=== PATIENT | female | born 1985 | race Caucasian/White ===

== ENCOUNTER 2025-01-06 10:53 | Outpatient (REF) | payer OTHER, SELFPAY ==
--- NOTE | ~2025-01-06 | XR_ITS ---
EXAMINATION: Lumbar spine 4 views. CLINICAL INDICATION: Radiculopathy. COMPARISON: None. TECHNIQUE: 4 views with flexion-extension. FINDINGS: There is maintained lumbar lordosis. The vertebral heights, alignment is normal. Mild loss of L5-S1 disc height. On flexion and extension views there is no listhesis or subluxation. On AP view there is minimal dextroscoliosis mid lumbar spine. No acute fracture, lytic or sclerotic process seen. SI joints are symmetrical and normal. Incidental finding of a radiopaque density in the right pelvis question artifact. Correlate with clinical history.: Mild dextroscoliosis lumbar spine. Mild degenerative disc changes L5-S1 disc level. No listhesis or subluxation seen on flexion-extension views. Electronically signed by: Arnold Winters MD 01/06/2025 12:54 PM EDT
== END 2025-01-06 10:54 | disposition home or self-care (01) ==
LOC: HO.HOSX 10:53
PROVIDERS: PCP Internal Medicine; Visit Provider Physician Assistant
DX: M54.16 Radiculopathy, lumbar region (principal)
CPT/HCPCS: 72110; 99202

== ENCOUNTER 2025-01-06 10:53 | Outpatient (AMB) | payer OTHER, SELFPAY ==
--- NOTE | 2025-01-06 10:56 | HO.SPINEOV ---
Vital Signs 01/06/25 11:00 Height 5 ft 4 in Weight 245 lb BMI 42.0 Intake Visit Reasons: low back pain Intake Note: Ms. Santos is here today c/o low back pain. 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 She is a very nice 39-year-old female who has had radiating right leg pain and right-sided low back pain going on now for quite some time. She has been dealing with it for few years but it has been getting steadily worse. She describes it as radiating down the back of her right-sided low back into her posterior thigh and into her calf and heel. There was also associated numbness going into her heel as well. A few years ago she did physical therapy and had an epidural injection done at L3-4 in the [facility] . This seemed to significantly improve the symptoms but ultimately a year to later it came back. 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 She will take ibuprofen intermittently when the pain gets really bad. She is here today with an MRI showing multiple degenerative findings. PMH: Shoulder surgery bilaterally, meniscus repair, GERD and seasonal allergies. No cardiopulmonary, liver or renal disease. No bleeding disorders, blood clots or coagulopathies. No history of cancer. Social hx: She does not smoke, drink use any recreational drugs Medications: She takes what sounds like a proton pump inhibitor and an allergy pill, and Motrin Allergies: Please see the [facility] [employer] [facility] [place] list Physical exam: Awake alert oriented no acute distress, strength and reflexes are normal in the lower extremities. Imaging review: There is a lumbar MRI done at the [facility]. I also did x-rays here today in the office with standing flexion-extension views. It should be noted that she has 6 [id number] lumbar vertebrae. At L4-5, there is broad-based disc bulge and moderate facet overgrowth causing bilateral lateral recess stenosis. The radiology report suggests there also could be some worsening of a disc bulge on the right at L2-3 in the foramen, but I do not see any evidence of nerve compression. The flexion-extension x-rays did not reveal any evidence of instability, but I suspect there might be a spondylolysis at L5. Impression: 39-year-old female presents with a right lumbar radiculopathy that was treated successfully with conservative management few years ago, seems to have returned, radiates down the back of her leg into her heel. Although the symptoms fit more with S1, I think because of the 6 lumbar vertebrae, the L4-5 level is acting like L5-S1 in its symptom presentation. At the L4-5 level on the MRI I can see lateral recess stenosis bilaterally and I think this would explain her symptoms. She did have a successful L3-4 epidural injection done a few years ago. This was in the [facility], but she is unable to get an appointment with them again until July of next year. I am going to start her again on physical therapy and try to get the injection done again. We can have Dr. Branch see her, and hopefully expedite an injection. I will see her back in a few months and if she is still in pain, I will show her films with Dr. Seals and see if he thinks she is a patient who would be a good candidate for a right L4-5 decompression. Thank you for allowing us to care for your patient. The total time spent with this visit with this patient was 45 minutes reviewing history, physical exam, lumbar imaging review, and implementation of treatment plan or further diagnostic testing John Saels MD,PhD [facility] Orders: Orders XR lumbar spine 4V min Today M54.16 - Radiculopathy, lumbar region PT Evaluation and Treatment Today M54.16 - Radiculopathy, lumbar region Referrals Physiatry Referral M54.16 - Radiculopathy, lumbar region Coding Level of Care Code New Pt Level 4 (17029) Diagnoses Lumbar radiculopathy M54.16
[2025-01-06 11:00] VITALS: BMI 42.0
== END 2025-01-06 11:54 | disposition home or self-care (01) ==
LOC: HO.HNS 10:54
PROVIDERS: PCP Internal Medicine; Visit Provider Physician Assistant
DX: M54.16 Radiculopathy, lumbar region (principal)
CPT/HCPCS: 99204

== ENCOUNTER → 2025-01-06 11:26 | Outpatient (BNV) | payer OTHER, SELFPAY | PROVIDERS: PCP Internal Medicine; Visit Provider Radiology Diagnostic Radiology | DX: M54.16 Radiculopathy, lumbar region (principal) | CPT/HCPCS: 72110 ==

== ENCOUNTER 2025-02-04 13:28 | Outpatient (AMB) | payer OTHER, SELFPAY ==
[2025-02-04 13:45] VITALS: BMI 42.0
--- NOTE | 2025-02-04 13:45 | A.PHYSOV_ITS ---
Vital Signs 02/04/25 13:45 Height 5 ft 4 in Weight 245 lb BMI 42.0 Intake Visit Reasons: NPV [facility] REF- LUMBAR RADICULOPATHY Intake Note: Patient is a 40 year old female here for lower back pain. Patient states her back pain has been chronic x 4 years. Patient denies injury. Patient states she is currently in Physical Therapy and has had an MRI. Patient states that most of her pain is on the right side of her lower back and occasionally has pain in right leg with numbness in the foot. Director Day Care Center Required: No Allergies erythromycin base Allergy (Severe, Verified 01/06/25 11:02) Hives Sulfa (Sulfonamide Antibiotics) Allergy (Severe, Verified 01/06/25 11:02) Hives sulfamethoxazole (From Bactrim) Allergy (Severe, Verified 01/06/25 11:02) Hives trimethoprim (From Bactrim) Allergy (Severe, Verified 01/06/25 11:02) Hives HPI Comments Details: History of Present Illness The patient is a 40-year-old female presenting with chronic low back pain with radiculopathy. She has experienced this pain for several years and previously responded well to an L3-4 epidural injection administered three years ago in [place], which provided significant relief. Currently, the pain is rated at 6 out of 10 on a typical day, escalating to 7 with activity, and occasionally radiates to the right leg and hip. The patient reports that the pain sometimes affects her lateral hip, especially when lying on her side, and occasionally extends to the front of her thigh. She has undergone physical therapy with five sessions completed, and she manages her pain with ibuprofen. The patient also reports new onset heel pain, which is a recent development since her last evaluation. She was referred to our department by Neurosurgery who is requesting epidural injection. I reviewed the referring provider's no prior consultation. Results - Imaging: MRI lumbar spine 12/23/2024 impression: Right foraminal disc protrusion at L2-3 with mild/moderate right neural foraminal narrowing and trace contact of the exiting right L2 nerve root, new back/increased from prior. Right foraminal disc protrusion at L3-4 with mild/moderate right neural foraminal narrowing and contact of the exiting L3 nerve root, similar to prior. Milder degenerative changes as above. [facility] Surgical History H/O shoulder surgery (Unknown) H/O: knee surgery (Unknown) Social History Alcohol intake: never Patient Tobacco Use Status: Never used Tobacco Use of substances other than those prescribed or required for medical reasons: No Review of Systems Narrative Review of Systems - Musculoskeletal: Reports chronic low back pain, right leg pain, and heel pain - Neurological: Denies tension or tightness in the right leg Physical Exam Exam Exam: Physical Exam Lumbar Spine: Examination of her lumbar spine, there is no visible swelling or deformity. She is tender over the right lower lumbar facets. She is otherwise nontender. Full range of motion of her lumbar spine. She does have an increase in pain with facet loading. Special Tests: Lhermittes sign was negative Heel Toe walk is normal Left straight leg raise: Negative Right straight leg raise: Positive right Special tests Sergio test is negative Ganslen's test is negative SI Joint compression test negative Yuri test negative Piriformis stretch is negative Lower Extremities: Full range of motion bilateral lower extremities. No calf pain or edema. Neuro: Sensation: Intact to lower extremities bilaterally Strength L2 (Psoas): 5/5 on the left and 5/5 on the right. L3 (Quads): 5/5 on the left and 5/5 on the right. L4 (Ant tibialis): 5/5 on the left and 5/5 on the right. L5 (EHL) 5/5 on the left and 5/5 on the right. S1 (Gastroc): 5/5 on the left and 5/5 on the right. DTR L4: (Patellar) Left 2 Right 2 S1: (Achilles) Left 2 Right 2 Babinski Downgoing No pathologic clonus. No involuntary movement. Vital Signs: BMI result Body Mass Index 42.0 Assessment & Plan Assessment & Plan (1) Lumbar spondylosis: Code(s): M47.816 - Spondylosis without myelopathy or radiculopathy, lumbar region Category: Medical Plan Pain Management - Affect: No specific impact on mood or psychological wellbeing discussed - Analgesia: Current pain level 6/10, managed with ibuprofen - Adverse Effects: No adverse effects from ibuprofen reported - Activities of Daily Living: Pain affects activity levels, increasing pain to 7/10 - Aberrant Drug Related Behaviors: None reported Plan Patient was informed and verbally consented to the use of an ambient scribe for clinic note documentation during this visit. 1. Chronic Low Back Pain The patient will receive an L3-4 epidural injection, similar to the one administered three years ago, which provided significant relief. She received 50% reduction of her pain for over 3 years. We will obtain prior authorization for her injection contact her once we have done so. The risks of the procedure, including infection, nerve damage, and bleeding, were discussed. She will continue physical therapy her medications as prescribed. We discussed the benefits of proper nutrition and exercise to maintain a healthy body weight to improve longevity and function. We also discussed the benefits of proper lifting techniques, core strengthening and proper posture. Thank you for allowing me to participate in the care of your patient. Coding Level of Care Code Tele New Pt Level 4 (74036) Diagnoses Lumbar spondylosis M47.816
--- OUTSIDE RECORDS SUMMARY | 2025-02-04 16:19 | XMS_ITS | Clinical Summary ---
Author Organization [facility] Address [address] [place] [id number] Phone Care Team Providers Care Wireless Architect Name Role Phone Jared Lerma MD Primary Care Provider [phone] Encounters Date Type Department Care Team Description 01/09/2025 Transcribe Orders [facility] Orthopedics & Sports Medicine [address] [place] [id number] Juani Tipton MD from Last 3 Months Social History Tobacco Use Types Packs/Day Years Used Date Smoking Tobacco: Never Assessed Comments Unknown Sex and Gender Information Value Date Recorded Sex Assigned at Not on file Legal Sex Female 8:08 PM EST Gender Identity Not on file Sexual Orientation Not on file Plan of Treatment Not on file Medical Devices Not on file Care Teams Wireless Architect Relationship Specialty Start Date End Date Jared Lerma MD [address] [place] [id number] PCP - General 09/23/13 Additional Source Comments The information contained in this document represents components of the legal health record. It is not the complete legal health record.[facility]
== END 2025-02-04 14:12 | disposition home or self-care (01) ==
LOC: HO.HPHYS 13:28
PROVIDERS: PCP Internal Medicine; Visit Provider Physician Assistant
DX: M47.816 Spondylosis without myelopathy or radiculopathy, lumbar region (principal)
CPT/HCPCS: 99203

== ENCOUNTER → 2025-02-04 13:28 | Outpatient (BNVA) | payer OTHER, SELFPAY | PROVIDERS: PCP Internal Medicine; Visit Provider Physician Assistant | DX: M47.26 Other spondylosis with radiculopathy, lumbar region (principal); G89.29 Other chronic pain | CPT/HCPCS: 99202 ==